=== PATIENT | female | born 1945 | race Caucasian/White ===

== ENCOUNTER 2020-09-22 10:09 | Outpatient (REF) | payer MEDICARE, SELFPAY ==
--- NOTE | ~2020-09-22 | US_ITS ---
EXAMINATION: US EXTRACRANIAL CAROTID DUPLEX, BILATERAL CLINICAL INFORMATION: Other specified symptoms and signs involving the circulatory respiratory systems COMPARISON: None TECHNIQUE: Real-time ultrasound and Doppler techniques (integrating B-mode 2-D vascular images, Doppler spectral analysis and color-flow Doppler imaging) were utilized to interrogate the extracranial carotid arteries, the vertebral arteries and proximal subclavian arteries bilaterally. The degree of stenosis is determined by criteria similar to NASCET. FINDINGS: Right Side: 1. There is trace atherosclerotic plaque seen in the bifurcation/proximal ICA region. 2. The common carotid artery PSV proximally is 84 cm/s and distally 85 cm/s. 3. The proximal internal carotid artery velocities are 67 cm/s systolic and 18 cm/s diastolic. 4. The proximal external carotid artery PSV is 114 cm/s. 5. The vertebral artery shows antegrade flow. 6. The subclavian artery waveforms are normal. Left Side: 1. There is trace atherosclerotic plaque seen in the bifurcation/proximal ICA region. 2. The common carotid artery PSV proximally is 106 cm/s and distally 69 cm/s. 3. The proximal internal carotid artery velocities are 52 cm/s systolic and 19 cm/s diastolic. 4. The proximal external carotid artery PSV is 67 cm/s. 5. The vertebral artery shows antegrade flow. 6. The subclavian artery waveforms are normal. US/US carotid duplex BI IMPRESSION: 1. RIGHT: Minimal, non-hemodynamically significant stenosis of the proximal right internal carotid artery corresponding to a 0-49% stenosis by velocity criteria. 2. LEFT: Minimal, non-hemodynamically significant stenosis of the proximal left internal carotid artery corresponding to a 0-49% stenosis by velocity criteria.
== END 2020-09-22 10:10 | disposition home or self-care (01) ==
LOC: HO.US 10:09
PROVIDERS: Visit Provider Internal Medicine
DX: I65.23 Occlusion and stenosis of bilateral carotid arteries (principal); R09.89 Other specified symptoms and signs involving the circulatory and respiratory systems
CPT/HCPCS: 93880

== ENCOUNTER 2023-04-10 10:23 | Outpatient (AMB) | payer MEDICARE, SELFPAY ==
--- NOTE | 2023-04-10 10:36 | MHC.PC.OV ---
Vital Signs 04/10/23 10:37 Height 5 ft 3 in Weight 141 lb BMI 25.0 BP 136/72 Blood Pressure Location Lt brachial Position Sitting Pulse 75 Pulse Source Pulse Oximeter Pulse Oximetry (%) 97 Oxygen Delivery Method Room Air Intake Visit Reasons: Annual Physical Intake Note: Pt is here today for PE. Allergies No Known Allergies Allergy (Verified 04/10/23 10:40) Medication List - Last Reconciled 04/10/23 by Micaela Haro MD anastrozole 1 mg PO DAILY metoprolol succinate ER 75 mg (1.5 x 50 mg) PO DAILY triamcinolone acetonide 0.5% 1 appl topical BID Tobacco use date assessed: 04/10/23 Fall risk assessment: No Falls in past year Last assessed Fall Risk: 04/10/23 Dental Screening Dental Screen Date: 04/10/23 Did you have a dental visit in the last 12 months?: Yes Did you have a dental problem in the last 6 months where you did not have access to dental care?: No Was dental information given to patient?: Patient has dentist HPI Annual Physical HPI Details Pt presents for PE. PFSH Medical History Breast CA Bilateral carotid bruits Vitamin D deficiency Annual physical exam History of mammogram Osteopenia Hyperlipidemia Hypertension Surgical History H/O colonoscopy Family History Father No problems noted. Mother No problems noted. Social History Housing: House Alcohol intake: current Alcohol intake frequency: holidays/special occasions only Patient Tobacco Use Status: Never used Tobacco e-Cigarette/Vaping Use: Never Used Current occupational status: employed and retired Cognitive needs: No Hearing needs: No Vision needs: Yes Questionnaire PHQ-9 Over the last 2 weeks, how often have you been bothered by any of the following problems? 1. Little interest or pleasure in doing things: not at all 2. Feeling down, depressed, or hopeless: not at all 3. Trouble falling or staying asleep, or sleeping too much: not at all 4. Feeling tired or having little energy: not at all 5. Poor appetite or overeating: not at all 6. Feeling bad about yourself - or that you are a failure or have let yourself or your family down: not at all 7. Trouble concentrating on things, such as reading the newspaper or watching television: not at all 8. Moving or speaking so slowly that other people could have noticed. Or the opposite - being so fidgety or restless that you have been moving around a lot more than usual: not at all 9. Thoughts that you would be better off or of hurting yourself in some way: not at all Total score: 0 Depression Screening Interpretation: Negative Depression Screening Done: Yes Source: Developed by Drs. Yovani Newsome, Smita Macias, Dipesh Addison and colleagues, with an educational mark from [employer]. Thrive Questionnaire Date Thrive assessed: 04/10/23 I am a: Patient What is your living situation today?: I have a steady place to live Within the past 12 months, did the food you bought not last and you didn't have the money to get more?: Never true Within the past 12 months, did you worry whether your food would run out before you got money to buy more?: Never true Do you have trouble paying for medicines?: No Do you have trouble getting transportation to medical appointments?: No Do you have trouble paying your heating and electricity bill?: No Do you have trouble taking care of your child, family member or friend?: No Do you have trouble with day-to-day activities such as bathing, preparing meals, shopping, managing finances, etc.?: No Are you currently unemployed and looking for a job?: No Are you interested in more education?: No Please select the resources that you would like help with: None Currently or been in a relationship where the following occur: no concerns reported AUDIT C Alcohol Use Questionnaire (AUDIT-C) 1. How often do you have a drink containing alcohol?: 2-4 times a month 2. How many drinks containing alcohol do you have on a typical day when you are drinking?: 1 or 2 3. How often do you have six or more drinks on one occasion?: Never Total Score: 2 KEYANA-7 AMB Questionnaire KEYANA-7 Date KEYANA - 7 assessed: 10/16/23 Feeling nervous, anxious, or on edge: 0 = Not at all Not being able to stop or control worryin = Not at all Worrying too much about different things: 0 = Not at all Trouble relaxin = Not at all Being so restless that it is hard to sit still: 0 = Not at all Becoming easily annoyed or irritable: 0 = Not at all Feeling afraid as if something awful might happen: 0 = Not at all Total KEYANA-7 score (0-4 normal; 5-9 mild; 10-14 moderate; 15-21 severe): 0 Source: Developed by Drs. Yovani Newsome, Smita Macias, Dipesh Addison and colleagues, with an educational mark from [employer]. Review of Systems Const All systems reviewed & are unremarkable except as noted in HPI and below Reports no additional complaints Eyes Reports no additional complaints Card Reports no additional complaints Resp Reports no additional complaints GI Reports no additional complaints Reports no additional complaints Physical exam (Primary Care) Vital Signs: Last Vital Signs Pulse 75 04/10/23 10:37 BP 136/72 04/10/23 10:37 Pulse Ox 97 04/10/23 10:37 Oxygen Delivery Method Room Air 04/10/23 10:37 BMI result Body Mass Index 25.0 Tobacco/Smoking Status: Tobacco use Status Tobacco use date assessed 04/10/23 04/10/23 10:43 Patient Tobacco Use Status Never used Tobacco 04/10/23 10:36 e-Cigarette/Vaping Use Never Used 04/10/23 10:36 PHQ-9: PHQ-9 Score PHQ-9: Total score 0 04/10/23 10:45 Depression Screening Interpretation: Negative Thrive Assessment: Date of Thrive Assessment Date Thrive assessed 04/10/23 04/10/23 10:45 Currently or been in a relationship where the following occur: no concerns reported Const General: no acute distress HENMT Ears: hearing grossly normal bilaterally Face and sinus: Yes normal facial exam Eyes General: appearance normal, both eyes and all related structures Resp Effort & Inspection: normal respiratory effort Auscultation: clear to auscultation bilaterally Cardio Rhythm: regular rhythm Heart sounds: S1 normal heart sound present and S2 normal heart sound present GI Palpation (GI): Soft to palpation Percussion: Yes normal to percussion Auscultation: normal bowel sounds Assessment and Plan Assessment & Plan (1) Breast CA: Comment: ductal ca, bx 03/23/2021, referred to [facility] Code(s): C50.919 - Malignant neoplasm of unspecified site of unspecified female breast Plan: f/u with oncology (2) Hyperlipidemia: Comment: Patient refused to take statin Code(s): E78.5 - Hyperlipidemia, unspecified Plan: cont low cholesterol diet (3) Hypertension: Comment: BP goal less than 130/80 Code(s): I10 - Essential (primary) hypertension Plan: cont Metoprolol (4) Colon polyps: Comment: Dr. VILLATORO 2017, recheck 5 yrs Code(s): K63.5 - Polyp of colon Plan: f/u with GI for recheck colonoscopy Orders: Orders Comprehensive [place]. Panel Fast 365 Days E78.5 - Hyperlipidemia, unspecified, I10 - Essential (primary) hypertension TSH reflex Free T4 365 Days E78.5 - Hyperlipidemia, unspecified, I10 - Essential (primary) hypertension Complete Blood Count Auto Diff 365 Days E78.5 - Hyperlipidemia, unspecified, I10 - Essential (primary) hypertension Referrals Gastroenterology Referral Z00.00 - Encounter for general adult medical examination without abnormal findings Coding Level of Care Code Est Pt Prev Care >65y(37170) Diagnoses Breast CA C50.919 Hyperlipidemia E78.5 Hypertension I10 Colon polyps K63.5
[2023-04-10 10:37] VITALS: BP 136/72; PULSE 75; O2SAT 97; BMI 25.0
== END 2023-04-10 12:40 | disposition home or self-care (01) ==
PROVIDERS: Visit Provider Internal Medicine
DX: Z00.00 Encounter for general adult medical examination without abnormal findings (principal); C50.919 Malignant neoplasm of unspecified site of unspecified female breast; E78.5 Hyperlipidemia, unspecified; I10 Essential (primary) hypertension; K63.5 Polyp of colon
CPT/HCPCS: 99397

== ENCOUNTER 2023-04-10 11:19 | Outpatient (REF) | payer MEDICARE, SELFPAY ==
[2023-04-10 13:09] LABS: MANUAL DIFF FLAG NO
[2023-04-10 13:25] LABS: Basophils Percent Auto 0.8 % (0-2); Eosinophils Absolute Auto 0.1 X10*3/uL (0.0-0.4); Eosinophils Percent Auto 2.7 % (0-4); Hemoglobin 15.6 g/dl (12.0-16.0); Imm Gran Abs Auto 0.02 X10*3/uL (0.00-0.03); Imm Gran Pct Auto 0.4 % (0.0-0.4); Lymphocytes Percent Auto 38.9 % (20-40); Mean Corpuscular HGB Conc 34.7 g/dl (31.0-35.0); Mean Corpuscular Hemoglobin 30.3 pg (27.0-33.0); Mean Corpuscular Volume 87.4 fL (80.0-98.0); Mean Platelet Volume 11.7 fL (9.4-12.3); Monocytes Absolute Auto 0.6 X10*3/uL (0.1-1.2); Monocytes Percent Auto 10.9 % (2-11); Neutrophils Absolute Auto 2.4 x10*3/uL (2.0-8.3); Neutrophils Percent Auto 46.3 % (45-73); Platelet Count 230 X10*3/uL (160-400); Red Blood Count 5.15 X10*6/uL (4.20-5.50); Red Cell Distribution Width 13.2 % (11.0-16.0); White Blood Count 5.3 X10*3/uL (4.8-10.8)
[2023-04-10 13:46] LABS: Alanine Aminotransferase 19 U/L (0-31); Albumin Level 4.5 g/dL (3.5-5.0); Alkaline Phosphatase 76 U/L (39-117); Anion Gap 15 (12-20); Aspartate Amino Transferase 23 U/L (5-31); Bilirubin Total 0.6 mg/dL (0.0-1.0); Blood Urea Nitrogen 11 mg/dL (9-16); Calcium 9.6 mg/dL (8.4-10.2); Carbon Dioxide 27 mmol/L (22-29); Chloride 103 mmol/L (96-108); Estimated Glomerular Filt Rate > 60; Glucose Fasting 104 mg/dL (60-99); Potassium 4.2 mmol/L (3.3-5.1); Sodium 141 mmol/L (135-145); Total Protein 7.7 g/dL (6.5-8.0)
[2023-04-10 14:02] LABS: TSH reflex Free T4 1.15 uIU/mL (0.32-4.0); Vitamin D 25-OH Total 81.6 ng/mL (>30)
== END 2023-04-10 11:20 | disposition home or self-care (01) ==
LOC: HO.HMGCLDS 11:19
PROVIDERS: PCP Internal Medicine; Visit Provider Internal Medicine
DX: C50.919 Malignant neoplasm of unspecified site of unspecified female breast (principal); E78.5 Hyperlipidemia, unspecified; I10 Essential (primary) hypertension; E55.9 Vitamin D deficiency, unspecified
CPT/HCPCS: 36415; 80053; 82306; 84443; 85025

== ENCOUNTER 2024-04-24 08:37 | Outpatient (REF) | payer MEDICARE, SELFPAY | END 2024-04-24 08:38 | disposition home or self-care (01) | LOC: HO.HMGCLDS 08:37 | PROVIDERS: PCP Internal Medicine; Visit Provider Internal Medicine | DX: Z00.00 Encounter for general adult medical examination without abnormal findings (principal); C50.919 Malignant neoplasm of unspecified site of unspecified female breast; Z79.899 Other long term (current) drug therapy; I10 Essential (primary) hypertension; Z86.0100 Personal history of colon polyps, unspecified | CPT/HCPCS: 96127; 99397 ==

== ENCOUNTER 2024-04-24 08:37 | Outpatient (AMB) | payer MEDICARE, SELFPAY ==
--- NOTE | 2024-04-24 08:38 | A.OFFPC_ITS ---
Vital Signs 04/24/24 08:47 Height 5 ft 3 in Weight 143 lb BMI 25.3 BP 128/70 Blood Pressure Location Lt brachial Position Sitting Pulse 79 Pulse Source Pulse Oximeter Pulse Oximetry (%) 98 Oxygen Delivery Method Room Air Intake Visit Reasons: Annual PE Intake Note: Pt is here today for PE. Allergies No Known Allergies Allergy (Verified 04/24/24 09:06) Medication List - Last Reconciled 04/24/24 by Micaela Haro MD anastrozole 1 mg PO DAILY metoprolol succinate ER 75 mg (1.5 x 50 mg) PO DAILY triamcinolone acetonide 0.5% 1 appl topical BID Tobacco use date assessed: 04/24/24 Fall risk assessment: No Falls in past year Last assessed Fall Risk: 04/24/24 Dental Screening Dental Screen Date: 04/24/24 Did you have a dental visit in the last 12 months?: Yes Did you have a dental problem in the last 6 months where you did not have access to dental care?: No Was dental information given to patient?: Patient has dentist HPI Annual PE HPI Details Pt presents for PE. She is going on tour to [place] for 10 days in May. [facility] Medical History (Updated 04/24/24 @ 09:29 by Micaela Haro MD) Breast CA Bilateral carotid bruits Vitamin D deficiency Annual physical exam History of mammogram Osteopenia Hyperlipidemia Hypertension Surgical History (Updated 04/24/24 @ 09:29 by Micaela Haro MD) H/O colonoscopy Family History Father No problems noted. Mother No problems noted. Social History Housing: House Alcohol intake: current Alcohol intake frequency: holidays/special occasions only Patient Tobacco Use Status: Never used Tobacco e-Cigarette/Vaping Use: Never Used service: No Current occupational status: employed and retired Cognitive needs: No Hearing needs: No Vision needs: Yes Questionnaire PHQ-9 Over the last 2 weeks, how often have you been bothered by any of the following problems? 1. Little interest or pleasure in doing things: not at all 2. Feeling down, depressed, or hopeless: not at all 3. Trouble falling or staying asleep, or sleeping too much: not at all 4. Feeling tired or having little energy: not at all 5. Poor appetite or overeating: not at all 6. Feeling bad about yourself - or that you are a failure or have let yourself or your family down: not at all 7. Trouble concentrating on things, such as reading the newspaper or watching television: not at all 8. Moving or speaking so slowly that other people could have noticed. Or the opposite - being so fidgety or restless that you have been moving around a lot more than usual: not at all 9. Thoughts that you would be better off or of hurting yourself in some way: not at all Total score: 0 Depression Screening Interpretation: Negative Depression Screening Done: Yes 44909 - PHQ-9 Billing: Yes Source: Developed by Drs. Yovani Newsome, Smita Macias, Dipesh Addison and colleagues, with an educational mark from [employer]. Thrive Questionnaire Date Thrive assessed: 04/24/24 I am a: Patient What is your living situation today?: I have a steady place to live Within the past 12 months, did the food you bought not last and you didn't have the money to get more?: Never true Within the past 12 months, did you worry whether your food would run out before you got money to buy more?: Never true Do you have trouble paying for medicines?: No Do you have trouble getting transportation to medical appointments?: No Do you have trouble paying your heating and electricity bill?: No Do you have trouble taking care of your child, family member or friend?: No Do you have trouble with day-to-day activities such as bathing, preparing meals, shopping, managing finances, etc.?: No Are you currently unemployed and looking for a job?: No Are you interested in more education?: No Please select the resources that you would like help with: None THRIVE Score: 0 AUDIT C Alcohol Use Questionnaire (AUDIT-C) 1. How often do you have a drink containing alcohol?: Monthly or less 2. How many drinks containing alcohol do you have on a typical day when you are drinking?: 1 or 2 3. How often do you have six or more drinks on one occasion?: Never Total Score: 1 KEYANA-7 AMB Questionnaire KEYANA-7 Date KEYANA - 7 assessed: 04/24/24 Feeling nervous, anxious, or on edge: 0 = Not at all Not being able to stop or control worryin = Not at all Worrying too much about different things: 0 = Not at all Trouble relaxin = Not at all Being so restless that it is hard to sit still: 0 = Not at all Becoming easily annoyed or irritable: 0 = Not at all Feeling afraid as if something awful might happen: 0 = Not at all Total KEYANA-7 score (0-4 normal; 5-9 mild; 10-14 moderate; 15-21 severe): 0 Source: Developed by Drs. Yovani Newsome, Smita Macias, Dipesh Addison and colleagues, with an educational mark from [employer]. KEYANA-7 Assessment Billing KEYANA-7 Assessment Tool: KEYANA-7 Assessment 34346 Review of Systems Const All systems reviewed & are unremarkable except as noted in HPI and below Eyes Reports no additional complaints ENT Reports no additional complaints Card Reports no additional complaints Resp Reports no additional complaints GI Reports no additional complaints Reports no additional complaints Physical exam (Primary Care) Vital Signs: Last Vital Signs Pulse 79 04/24/24 08:47 BP 128/70 04/24/24 08:47 Pulse Ox 98 04/24/24 08:47 Oxygen Delivery Method Room Air 04/24/24 08:47 BMI result Body Mass Index 25.3 Tobacco/Smoking Status: Tobacco use Status Tobacco use date assessed 04/24/24 04/24/24 09:10 Patient Tobacco Use Status Never used Tobacco 04/24/24 08:38 e-Cigarette/Vaping Use Never Used 04/24/24 08:38 PHQ-9: PHQ-9 Score PHQ-9: Total score 0 04/24/24 09:10 Depression Screening Interpretation: Negative Thrive Assessment: Date of Thrive Assessment Date Thrive assessed 04/24/24 04/24/24 09:10 Const General: no acute distress HENMT Head: Yes normal to inspection General nose exam: Normal external nose present Face and sinus: Yes normal facial exam Mouth: Normal oral and palatal mucosa present Throat: Yes posterior oropharynx normal Eyes General: appearance normal, both eyes and all related structures Neck Neck: Yes no lymphadenopathy and Yes supple Resp Effort & Inspection: normal respiratory effort Auscultation: clear to auscultation bilaterally Cardio Rhythm: regular rhythm Heart sounds: S1 normal heart sound present and S2 normal heart sound present GI Inspection: Yes normal to inspection Palpation (GI): Soft to palpation Percussion: Yes normal to percussion Auscultation: normal bowel sounds Coding Level of Care Code Est Pt Prev Care >65y(41251) Diagnoses Breast CA C50.919 H/O colonoscopy Z98.890 Hypertension I10 Annual physical exam Z00.00 Additional Codes KEYANA-7 Assessment Billing - KEYANA-7 Assessment Tool: KEYANA-7 Assessment [id number] ([id number]) Assessment & Plan Assessment & Plan (1) Breast CA: Comment: ductal ca, bx 03/23/2021, s/p lumpectomy on anastrozole , follow[facility] Oncology and surgery Code(s): C50.919 - Malignant neoplasm of unspecified site of unspecified female breast Category: Medical Plan: Continue anastrozole follow-up with oncology (2) H/O colonoscopy: Comment: August 2016 with benign polyps, 11/2023 Dr. Ferro hyperplastic polyp, no need for repeat Code(s): Z98.890 - Other specified postprocedural states Category: Surgical Plan: Up-to-date with colonoscopy (3) Hypertension: Comment: BP goal less than 130/80 Code(s): I10 - Essential (primary) hypertension Category: Medical Plan: Continue metoprolol (4) Annual physical exam: Code(s): Z00.00 - Encounter for general adult medical examination without abnormal findings Category: Medical Plan: Well-balanced diet regular physical activity discussed with the patient , return in 1 year
[2024-04-24 08:47] VITALS: BP 128/70; PULSE 79; O2SAT 98; BMI 25.3
== END 2024-04-24 09:29 | disposition home or self-care (01) ==
LOC: HO.HMCC 08:38
PROVIDERS: PCP Internal Medicine; Visit Provider Internal Medicine
DX: C50.919 Malignant neoplasm of unspecified site of unspecified female breast (principal); Z98.890 Other specified postprocedural states; I10 Essential (primary) hypertension; Z00.00 Encounter for general adult medical examination without abnormal findings

== ENCOUNTER 2025-04-29 11:45 | Outpatient (AMB) | payer MEDICARE, SELFPAY ==
--- NOTE | 2025-04-29 11:59 | MHC.PC.OV ---
Vital Signs 04/29/25 12:02 Height 5 ft 3 in Weight 142 lb BMI 25.2 BP 126/72 Blood Pressure Location Lt brachial Position Sitting Respiration 16 Pulse 64 Pulse Source Pulse Oximeter Temp 97.8 F Temp Source Oral Pulse Oximetry (%) 95 Oxygen Delivery Method Room Air Intake Visit Reasons: Annual PE - see comments Intake Note: Pt is here today for PE. Pt states that she is fasting today. Allergies No Known Allergies Allergy (Verified 04/29/25 12:09) Medication List - Last Reconciled 04/29/25 by Micaela Haro MD anastrozole 1 mg PO DAILY metoprolol succinate ER 75 mg (1.5 x 50 mg) PO DAILY triamcinolone acetonide 0.5% 1 appl topical BID Tobacco use date assessed: 04/29/25 Fall risk assessment: No Falls in past year Last assessed Fall Risk: 04/29/25 Dental Screening Dental Screen Date: 04/29/25 Did you have a dental visit in the last 12 months?: Yes Did you have a dental problem in the last 6 months where you did not have access to dental care?: No Was dental information given to patient?: Patient has dentist HPI Annual PE - see comments HPI Details Patient presents for physical PFSH Medical History Breast CA Bilateral carotid bruits Vitamin D deficiency Annual physical exam History of mammogram Osteopenia Hyperlipidemia Hypertension Surgical History H/O colonoscopy Family History Father No problems noted. Mother No problems noted. Social History Housing: House Alcohol intake: current Alcohol intake frequency: holidays/special occasions only Patient Tobacco Use Status: Never used Tobacco e-Cigarette/Vaping Use: Never Used service: No Current occupational status: employed and retired Cognitive needs: No Hearing needs: No Vision needs: Yes Questionnaire Thrive Questionnaire Date Thrive assessed: 04/24/24 AUDIT C Alcohol Use Questionnaire (AUDIT-C) 1. How often do you have a drink containing alcohol?: Monthly or less 2. How many drinks containing alcohol do you have on a typical day when you are drinking?: 1 or 2 3. How often do you have six or more drinks on one occasion?: Never Total Score: 1 KEYANA-7 AMB Questionnaire KEYANA-7 Date KEYANA - 7 assessed: 04/24/24 Source: Developed by Drs. Yovani Newsome, Smita Macias, Dipesh Addison and colleagues, with an educational mark from [employer]. Review of Systems Const All systems reviewed & are unremarkable except as noted in HPI and below Eyes Reports no additional complaints ENT Reports no additional complaints Card Reports no additional complaints Resp Reports no additional complaints GI Reports no additional complaints Reports no additional complaints Physical exam (Primary Care) Vital Signs: Last Vital Signs Temp 97.8 F 04/29/25 12:02 Pulse 64 04/29/25 12:02 Resp 16 04/29/25 12:02 BP 126/72 04/29/25 12:02 Pulse Ox 95 04/29/25 12:02 Oxygen Delivery Method Room Air 04/29/25 12:02 BMI result Body Mass Index 25.2 Tobacco/Smoking Status: Tobacco use Status Tobacco use date assessed 04/29/25 04/29/25 12:12 Patient Tobacco Use Status Never used Tobacco 04/29/25 12:12 e-Cigarette/Vaping Use Never Used 04/29/25 12:00 Thrive Assessment: Date of Thrive Assessment Date Thrive assessed 04/24/24 04/29/25 12:00 Const General: no acute distress HENMT Head: Yes normal to inspection Ears: TM's normal bilaterally Face and sinus: Yes normal facial exam Mouth: Normal oral and palatal mucosa present Throat: Yes posterior oropharynx normal Eyes General: appearance normal, both eyes and all related structures Neck Neck: Yes no lymphadenopathy and Yes supple Resp Effort & Inspection: normal respiratory effort Auscultation: clear to auscultation bilaterally Cardio Rhythm: regular rhythm Heart sounds: S1 normal heart sound present and S2 normal heart sound present GI Inspection: Yes normal to inspection Palpation (GI): Soft to palpation Percussion: Yes normal to percussion Auscultation: normal bowel sounds Extrem General: Yes no clubbing, cyanosis or edema Coding Level of Care Code Est Pt Prev Care >65y(99041) Diagnoses Hypertension I10 Hyperlipidemia E78.5 Vitamin D deficiency E55.9 Breast CA C50.919 Annual physical exam Z00.00 Assessment & Plan Assessment & Plan (1) Hypertension: Comment: BP goal less than 130/80 Code(s): I10 - Essential (primary) hypertension Category: Medical Plan: Continue metoprolol (2) Hyperlipidemia: Comment: Patient refused to take statin Code(s): E78.5 - Hyperlipidemia, unspecified Category: Medical Plan: Continue low-cholesterol diet. patient declined medications and monitoring lipid profile (3) Vitamin D deficiency: Code(s): E55.9 - Vitamin D deficiency, unspecified Category: Medical Plan: Continue vitamin-D. (4) Breast CA: Comment: ductal ca, bx 03/23/2021, s/p lumpectomy on anastrozole , follow-up by [facility] Oncology and surgery, DEXA BY ONCOLOGY AT [facility] 2024 Code(s): C50.919 - Malignant neoplasm of unspecified site of unspecified female breast Category: Medical Plan: Follow-up with oncology (5) Annual physical exam: Code(s): Z00.00 - Encounter for general adult medical examination without abnormal findings Category: Medical Plan: Well-balanced diet regular physical activity discussed with the patient. Patient will have a blood work today and will return in 1 year Orders: Orders Complete Blood Count Auto Diff Today C50.919 - Malignant neoplasm of unspecified site of unspecified female breast, E55.9 - Vitamin D deficiency, unspecified, E78.5 - Hyperlipidemia, unspecified, I10 - Essential (primary) hypertension TSH reflex Free T4 Today C50.919 - Malignant neoplasm of unspecified site of unspecified female breast, E55.9 - Vitamin D deficiency, unspecified, E78.5 - Hyperlipidemia, unspecified, I10 - Essential (primary) hypertension Vitamin D 25-OH Total Today C50.919 - Malignant neoplasm of unspecified site of unspecified female breast, E55.9 - Vitamin D deficiency, unspecified, E78.5 - Hyperlipidemia, unspecified, I10 - Essential (primary) hypertension Comprehensive [place]. Panel Fast Today C50.919 - Malignant neoplasm of unspecified site of unspecified female breast, E55.9 - Vitamin D deficiency, unspecified, E78.5 - Hyperlipidemia, unspecified, I10 - Essential (primary) hypertension
[2025-04-29 12:02] VITALS: BP 126/72; PULSE 64; RESP 16; TEMP 36.6; O2SAT 95; BMI 25.2
--- OUTSIDE RECORDS SUMMARY | 2025-04-29 14:29 | XMS_ITS | Clinical Summary ---
Author Organization [facility] Address [address] [place] [address] Care Team Providers Care Chalk Cutter Name Role Phone Micaela Haro MD Primary Care Provider [phone] Allergies No known active allergies Medications Medication Sig Dispensed Refills Start Date End Date Status metoprolol succinate (TOPROL-XL) 24 hr tablet 50 mg 0 02/13/2021 Active anastrozole (ARIMIDEX) 1 MG tablet TAKE ONE TABLET BY MOUTH ONCE DAILY 90 tablet 3 08/02/2023 Active Active Problems Problem Noted Date Diagnosed Date Arthritis involving small and large joints 09/19 Osteopenia of multiple sites 04/18/2022 Malignant neoplasm of overla pping sites of right breast in female, estrogen receptor positive 04/21/2021 Family History Medical History Relation Name Comments Heart disease Father Relation Name Status Comments Father Social History Tobacco Use Types Packs/Day Years Used Date Smoking Tobacco: Former Cigarettes Smokeless Tobacco: Never Comments:socially in her 20' s Alcohol Use Standard Drinks/Week Comments Yes 5 (1 standard drink = 0.6 oz pur e alcohol) Sex and Gender Information Value Date Recorded Sex Assigned at Not on file Gender Identity Not on file Sexual Orientation Not on file Job Start Date Occupation Industry Not on file Not on file Not on file Last Filed Vital Signs Vital Sign Reading Time Taken Comments Blood Pressure 124/60 11/13/2023 1:54 PM EDT Pulse 83 11/13/2023 1:54 PM EDT Temperature 36.2 C (97.2 F) 11/13/2023 1:54 PM EDT Respiratory Rate - - Oxygen Saturation 100% 11/13/2023 1:54 PM EDT Inhaled Oxygen Concentration - - Weight 65.3 kg (144 lb) 11/13/2023 1:54 PM EDT Height 158.8 cm (5' 2.5 ) 04/18/2022 12:53 PM ED T Body Mass Index 25.92 04/18/2022 12:53 PM EDT Plan of Treatment Health Maintenance Due Date Last Done Comments Hepatitis C Screening 1945 COVID-19 Vaccine (#1) 1952 Pneumococcal Vaccine (1 of 2 - PCV) 1953 Depression Screening 1959 Preventative Health Evaluation 1965 DTap / Tdap / Td (1 - Tdap) 1966 Shingrix-Zoster Vaccine (1 of 2) 1966 Fall Risk Assessment 2012 Osteoporosis Screening (DEXA Scan) 2012 RSV Adult > 60+ Yrs or Pregn ant (1 - 1-dose 75+ series) 2022 Influenza Vaccine (#1) 2025 Hepatitis B Vaccines Aged Out No long er eligible based on patient's age to complete this topic RSV Ped < 20 months Aged Out No longe r eligible based on patient's age to complete this topic Care Teams Chalk Cutter Relationship Specialty Start Date End Date Micaela Haro MD [address] [facility] [place] [address] PCP - General Documentation Spec 04/08/21
--- OUTSIDE RECORDS SUMMARY | 2025-04-29 14:29 | XMS_ITS | Patient Health Record ---
Author Organization [facility] Address [address] [place] [address] Care Team Providers Care Automotive Technician Name Role Phone Madiha Tran Unavailable [phone] Reason For Referral No Information Problems Problem Type SNOMED Code ICD Code Onset Dates Problem Status W/U Status Risk Notes Problem Menopausal symptom (23488633) Symptomatic menopausal or female climacteric states (627.2) Active confirmed Major Problem Gynecological examination normal (964748369305335) Routine gynecological examination (V72.31) Active confirmed Major Problem Screening for malignant neoplasm of colon (450492463) Special screening for malignant neoplasms, colon (V76.51) Active confirmed Major Plan Of Treatment No Information Insurance Providers Payer Name Payer Address Payer Phone Subscriber Number Group Number Insured Name Patient Relationship to Insured Coverage Start Date Coverage End Date [employer] [place] [address] [place] [address] [phone] [id number] DEA CHATMAN Self - patient is the insured
--- OUTSIDE RECORDS SUMMARY | 2025-04-29 14:29 | XMS_ITS | Clinical Summary ---
Author Organization [facility] Address [address] [place] [address] Phone Care Team Providers Care Assistant Warehouse Manager Name Role Phone Micaela Haro MD Primary Care Provider Allergies No known active allergies Medications metoprolol succinate (TOPROL-XL) 50 mg 24 hr tablet 02/13/2021 Act pratima anastrozole (ARIMIDEX) 1 mg Take 1 tablet (1 mg total) by mouth 1 (one) time each day 90 tablet 3 11/11/2024 Active Active Problems Problem Noted Date Diagnosed Date Malignant neoplasm of overla pping sites of right breast in female, estrogen receptor positive ([facility] V24, [facility] V28) 02/14/2024 Arthritis involving small and large joints 09/19 Osteopenia of multiple sites 04/18/2022 Surgical History Surgery Date Site/Laterality Comments GALLBLADDER SURGERY PROCEDURE:GALLBLADDER SURGERY COLONOSCOPY PROCEDURE:COLONOSCOPY STEREOTACTIC CORE BIOPSY 06/26/2020 - 06/25/2021 Right Medical History Medical History Date Comments Hypertension DX:Hypertension Breast cancer ([facility] V24, [facility] V28) 2020 right breast Family History Medical History Relation Name Comments Heart disease Father Relation Name Status Comments Father Social History Tobacco Use Types Packs/Day Years Used Date Smoking Tobacco: Former Smokeless Tobacco: Never Tobacco Cessation:Counseling Given: Not Answered Alcohol Use Standard Drinks/Week Comments Yes 5 (1 standard drink = 0.6 oz pur e alcohol) Comments No Sex and Gender Information Value Date Recorded Sex Assigned at Not on file Legal Sex Female 10:53 PM EST Gender Identity Not on file Sexual Orientation Not on file Obstetrics History Para Term AB IAB SAB Ectopic Multiple Livin g Live Births 2 Last Filed Vital Signs Vital Sign Reading Time Taken Comments Blood Pressure 114/56 11/11/2024 2:09 PM EDT Pulse 82 11/11/2024 2:09 PM EDT Temperature 36.6 C (97.8 F) 11/11/2024 2:09 PM EDT Respiratory Rate - - Oxygen Saturation 98% 11/11/2024 2:09 PM EDT Inhaled Oxygen Concentration - - Weight 64.6 kg (142 lb 6.4 oz) 11/11/2024 2:09 P M EDT Height 157.5 cm (5' 2 ) 11/11/2024 2:09 PM EDT Body Mass Index 26.05 11/11/2024 2:09 PM EDT Plan of Treatment Upcoming Encounters Date Type Department Care Team (Late st Contact Info) Description 06/03/2025 11:45 AM EST Office Visit [facility] Hematology Oncology [address] [place] [phone] Aracely Dick MD [address] [place] [phone] 2025 1:20 PM EST Office Visit [address] [phone] Tiago Galicia MD [address] [place] [phone] Health Maintenance Due Date Last Done Comments COVID-19 Vaccine (#1) 1952 DTaP,Tdap,and Td Vaccines (1 - Tdap) 1966 Pneumococcal Vaccine: 50+ Years (1 of 2 - PCV) 1966 Zoster Vaccines (1 of 2) 1966 Falls Risk Assessment 06/04/2022 Hepatitis C Screening 06/04/2022 Medicare Annual Wellness Visit 06/04/2022 Social Influencers of Health Screening 06/04/2022 RSV Immunization Adult Patients (1 - 1-dose 75+ series) 2022 Depression Screening 06/26/2024 Influenza Vaccine (#1) 2025 Osteoporosis Screening (Bone Density Screening) 07/17/2033 07/17/2023, 10/19/2021 Breast Cancer Screening Discontinued 07/22/2024 HIB Vaccines Aged Out No longer eligi ble based on patient's age to complete this topic HPV Vaccines Aged Out No longer eligi ble based on patient's age to complete this topic Hepatitis A Vaccines Aged Out No long er eligible based on patient's age to complete this topic Hepatitis B Vaccines Aged Out No long er eligible based on patient's age to complete this topic IPV Vaccines Aged Out No longer eligi ble based on patient's age to complete this topic MMR Vaccines Aged Out No longer eligi ble based on patient's age to complete this topic Meningococcal ACWY Vaccine Aged Out N o longer eligible based on patient's age to complete this topic Meningococcal B Vaccine Aged Out No l onger eligible based on patient's age to complete this topic RSV Immunization Patients Under 20 months Aged Out No longer eligible based on patient's age to complete this topic Varicella Vaccines Aged Out No longer eligible based on patient's age to complete this topic Procedures Procedure Name Priority Date/Time Associated Diagnosis Comments MG MAMMO DIGITAL DIAGNOSTIC W MANE BILAT Routine 07/22/2024 1:25 PM EST Malignant neoplasm of overlapping sites of right breast in female, estrogen receptor positive ([facility] V24, [facility] V28) ROCK DEXA AXIAL SKELETON Routine 07/17/2023 2:42 PM EST Other specified disorders of bone density and structure, left thigh from Last 3 Months or Most Recently Relevant to Health Maintenance Results * MG Mammo Digital Diagnostic w Mane bilat (07/22/2024 1:25 PM EST) Anatomical Region Laterality Modality Breast Bilateral Mammography 07/22/2024 1:18 PM EST Impressions 07/22/2024 1:27 PM EST No mammographic evidence of new or recurrent malignancy. No suspicious interval change. A negative mammogram in the presence of a clinically suspicious palpable abnormality does not preclude the possibility of malignancy or alter the indications for biopsy. ASSESSMENT: BI-RADS 2: BENIGN RECOMMENDATION(S): 1: Routine screening mammogram BILATERAL in 1 year. -------- FINAL REPORT -------- Dictated By: Sumit Roy Dictated Date: 07/22/2024 13:18 ET Assigned Physician: Sumit Roy Reviewed and Electronically Signed By: Sumit Roy Signed Date: 07/22/2024 13:27 ET Workstation ID: [id number] Transcribed By: Self Edit Transcribed Date: 07/22/2024 13:18 ET Narrative 07/22/2024 1:27 PM EST EXAM: DIAGNOSTIC MAMMOGRAPHY, BILATERAL HISTORY: Personal history of right breast cancer. Prior lumpectomy and radiation. COMPARISON: 07/17/2023, 07/11/2022, 03/09/2021 TECHNIQUE: Synthesized CC and MLO projections of each breast. Tomosynthesis of each breast in the CC and MLO projections. ADDITIONAL IMAGING: Craniocaudal view of the right breast exaggerated toward the axilla using Tomosynthesis Computer-aided detection was employed with the [employer] AI 3-D. TISSUE DENSITY: There are scattered areas of fibroglandular density. (BI-RADS category B) FINDINGS: RIGHT BREAST: There is unchanged distortion with surgical clips consistent with prior lumpectomy. There is no new suspicious right breast finding. There is no change in the right retroareolar region in the craniocaudal projection. LEFT BREAST: No suspicious mass. No suspicious calcification. No distortion. No additional suspicious left breast findings Procedure Note Sumit Roy MD - 07/22/2024 EXAM: DIAGNOSTIC MAMMOGRAPHY, BILATERAL HISTORY: Personal history of right breast cancer. Prior lumpectomy andradiation. COMPARISON: 07/17/2023, 07/11/2022, 03/09/2021 TECHNIQUE: Synthesized CC and MLO projections of each breast.Tomosynthesis of each breast in the CC and MLO projections. ADDITIONAL IMAGING: Craniocaudal view of the right breast exaggeratedtoward the axilla using Tomosynthesis Computer-aided detection was employed with the [employer] AI 3-D. TISSUE DENSITY: There are scattered areas of fibroglandular density.(BI-RADS category B) FINDINGS: RIGHT BREAST: There is unchanged distortion with surgical clips consistent with priorlumpectomy. There is no new suspicious right breast finding. There is no change inthe right retroareolar region in the craniocaudal projection. LEFT BREAST: No suspicious mass. No suspicious calcification. No distortion. Noadditional suspicious left breast findings IMPRESSION: No mammographic evidence of new or recurrent malignancy. No suspicious interval change. A negative mammogram in the presence of a clinically suspicious palpableabnormality does not preclude the possibility of malignancy or alter theindications for biopsy. ASSESSMENT: BI-RADS 2: BENIGN RECOMMENDATION(S): 1: Routine screening mammogram BILATERAL in 1 year. -------- FINAL REPORT -------- Dictated By: Sumit Roy Dictated Date: 07/22/2024 13:18 ET Assigned Physician: Sumit Roy Reviewed and Electronically Signed By: Sumit Roy Signed Date: 07/22/2024 13:27 ET Workstation ID: [id number] Transcribed By: Self Edit Transcribed Date: 07/22/2024 13:18 ET Aracely Dick MD IMG BI PROCEDURES F inal Result * ROCK DEXA AXIAL SKELETON (07/17/2023 2:42 PM EST) Anatomical Region Laterality Modality Mammography 07/17/2023 1:56 PM EST Narrative 07/17/2023 2:42 PM EST [facility] Diagnostic Imaging Department [address] [place] [id number] Patient: HAFSA CHATMAN./Age/Sex: 1945 - 78 - F Unit#: [id number] Location/Status: SPDIMAM/REG CLI [facility]em[facility] Ordering Physician: ARACELY BEARD MD Rock Dexa Axial Skeleton - 07/17/23 - 1432 Report Status:Signed History: Low estrogen state due to menopause. Comparison: 10/19/21 Findings: Bone densitometry is performed utilizing dual energy x-ray absorptiometry (DXA) in the [employer] unit. The lumbar spine and proximal femora are evaluated in the AP projection. The FRAX questionaire was completed. The results indicate low bone mass (osteopenia), with a left femoral neck T- score of -2.0. The Z score is 0.0, indicating bone mineral density within the range of normal for age. There has been a small, statistically significant decrease in bone mineral density in the spine since the previous study. The detailed DEXA report will be mailed to the referring physician's office. DualFemur FRAX: 10-year Probability of Fracture: Major Osteoporotic 11.2 percent Hip 2.1 percent. IMPRESSION: Osteopenia. [id number] Dictating Physician: SPRING MARTIN MD Electronically Signed by: SPRING MARTIN MD Dic Date/Time: 07/17/23 1441 Sign date/Time: 07/17/23 1442 Procedure Note Spring Martin MD - 02/12/2024 [facility] Diagnostic Imaging Department [address] [place] [address] Patient: HAFSA CHATMAN Rachel/Age/Sex: 1945 - 78 - F Unit#: [id number] Location/Status: SPDIMAM/REG CLI Mnemonic/Ordering Site: [facility] Ordering Physician: ARACELY BEARD MD Rock Dexa Axial Skeleton - 07/17/23 - 1432 Report Status:Signed History: Low estrogen state due to menopause. Comparison: 10/19/21 Findings: Bone densitometry is performed utilizing dual energy x-ray absorptiometry(DXA) in the [employer] unit. The lumbar spine and proximal femora areevaluated in the AP projection. The FRAX questionaire was completed. The results indicate low bone mass (osteopenia), with a left femoral neckT- score of -2.0. The Z score is 0.0, indicating bone mineral density withinthe range of normal for age. There has been a small, statistically significant decrease in bonemineral density in the spine since the previous study. The detailed DEXA reportwill be mailed to the referring physician's office. DualFemur FRAX: 10-year Probability of Fracture: Major Osteoporotic 11.2 percent Hip 2.1 percent. IMPRESSION: Osteopenia. [id number] Dictating Physician: SPRING MARTIN MD Electronically Signed by: SPRING MARTIN MD Dic Date/Time: 07/17/23 1441 Sign date/Time: 07/17/23 1442 Aracely Dick MD IMG BI PROCEDURES F inal Result from Last 3 Months or Most Recently Relevant to Health Maintenance Insurance [employer] MEDICARE Care Teams Assistant Warehouse Manager Relationship Specialty Start Date End Date Micaela Haro MD [address] [place] [phone] PCP - General Internal Medicine 04/13/21
== END 2025-04-29 12:43 | disposition home or self-care (01) ==
LOC: HO.HMCC 11:45
PROVIDERS: PCP Internal Medicine; Visit Provider Internal Medicine
DX: Z00.00 Encounter for general adult medical examination without abnormal findings (principal); I10 Essential (primary) hypertension; C50.919 Malignant neoplasm of unspecified site of unspecified female breast; E78.5 Hyperlipidemia, unspecified; E55.9 Vitamin D deficiency, unspecified

== ENCOUNTER → 2025-04-29 11:45 | Outpatient (BNVA) | payer MEDICARE, SELFPAY | PROVIDERS: PCP Internal Medicine; Visit Provider Internal Medicine | DX: Z00.00 Encounter for general adult medical examination without abnormal findings (principal); I10 Essential (primary) hypertension; E78.5 Hyperlipidemia, unspecified; E55.9 Vitamin D deficiency, unspecified; C50.919 Malignant neoplasm of unspecified site of unspecified female breast | CPT/HCPCS: 99397 ==